=== PATIENT | female | born 1995 | race Asian ===

== ENCOUNTER 2023-03-30 19:32 | Emergency (ER) | payer BC, OTHER ==
[~2023-03-30] VITALS: Ht 167.6 cm; Wt 90.7 kg
[2023-03-30 19:39] VITALS: BP_SYST 141; PULSE 118; RESP 20; TEMP 99.8; O2SAT 98
[2023-03-30 20:38] LABS: INFLUENZA TYPE A Negative (NEGATIVE); INFLUENZA TYPE B NEGATIVE (NEGATIVE)
[2023-03-30 20:53] VITALS: TEMP 99.1
[2023-03-30] MEDS ORDERED: ZIT250 PO (21:26)
[2023-03-30] MEDS ORDERED: IBUP-1971 PO (21:26)
[2023-03-30] MEDS ORDERED: ONDA-8 TL (21:26)
[2023-03-30] MEDS ORDERED: DEXAMETHASONE SOD PHOSPHATE 10 MG/ML VIAL IM ONE (21:30)
[2023-03-30] MEDS ORDERED: ONDANSETRON 4 MG ODT TAB PO ONE (21:30)
[2023-03-30 21:40] VITALS: BP_SYST 113; PULSE 97; RESP 23; O2SAT 99
== END 2023-03-30 21:40 | disposition home or self-care (01) ==
LOC: SED 19:32
DX: J02.9 Acute pharyngitis, unspecified (principal); R50.9 Fever, unspecified; M79.10 Myalgia, unspecified site; Z79.899 Other long term (current) drug therapy; Z20.822 Contact with and (suspected) exposure to COVID-19
CPT/HCPCS: 99283; 87426; 36415; 96372; 87804 ×2; Q0162; J1100